=== PATIENT | male | born 1935 | race Caucasian/White ===

== ENCOUNTER 2016-10-23 08:54 | Emergency (ER) | payer OTHER, MEDICAID ==
[~2016-10-23] VITALS: Ht 165.1 cm; Wt 76.0 kg
[2016-10-23 08:59] VITALS: Ht 165.1 cm; Wt 76.0 kg
--- NOTE | 2016-10-23 09:42 | ERD ---
ER Documentation Chief Complaint Date/Time DATE: 10/23/16 TIME: 09:39 Chief Complaint PRODUCTIVE COUGH WITH WHITISH COLORED SECRFETION X 2 WEEK HPI This is an 81-year-old male with past medical history for hypertension and hypercholesterolemia presents to the emergency department with cough 2 weeks. Patient states he has productive cough with white/clear sputum production. Patient states last week he took Robitussin twice daily and this seemed to improve his symptoms. Patient states in the past 2 days the cough has returned and patient is coughing up clear white sputum. No fevers or chills. Patient also reports mild chest pressure to mid sternal region. No heart palpitations or severe crushing chest pain. No difficulty breathing or shortness of breath. No swelling of extremities. No dyspnea on exertion. ROS All systems reviewed and are negative except as per history of present illness. Medications Home Meds Active Scripts Guaifenesin* (Robitussin*) 100 Mg/5 Ml Syrup, 200 MG PO Q4H Y for COUGH, #120 ML Prov:ELY GERMAIN NP 10/23/16 Acetaminophen* (Tylenol*) 325 Mg Tablet, 1 TAB PO Q6 Y for PAIN AND OR ELEVATED TEMP, #20 TAB Prov:ELY GERMAIN NP 10/23/16 Allergies Allergies: Coded Allergies: No Known Allergy (Unverified , 10/23/16) PMhx/Soc Medical and Surgical Hx: pt denies Medical Hx, pt denies Surgical Hx Hx Alcohol Use: No Hx Substance Use: No Hx Tobacco Use: No Smoking Status: Never smoker Physical Exam Vitals Vital Signs Date Time Temp Pulse Resp B/P Pulse Ox O2 Delivery O2 Flow Rate FiO2 10/23/16 12:23 98.7 71 18 148/68 97 Room Air 10/23/16 11:31 196/91 10/23/16 08:59 98.1 74 18 182/87 98 Physical Exam Const: No acute distress, alert Head: Atraumatic Eyes: Normal Conjunctiva ENT: Normal External Ears, Nose and Mouth. Neck: Full range of motion..~ No meningismus. Resp: Clear to auscultation bilaterally. No wheezing, rhonchi or crackles. No stridor or labored breathing. Patient is talking in complete sentences. Cardio: Regular rate and rhythm, no murmurs Abd: Soft, non tender, non distended. Normal bowel sounds Skin: No petechiae or rashes Back: No midline or flank tenderness Ext: No cyanosis, or edema Neur: Awake and alert Psych: Normal Mood and Affect Results 24 hrs Current Medications Medications (Trade) Dose Ordered Sig/Ama Route PRN Reason Start Time Stop Time Status Last Admin Dose Admin Nicardipine HCl (Cardene) 30 mg ONCE ONCE PO 10/23/16 12:00 10/23/16 12:01 DC 10/23/16 11:36 Procedures/MDM MDM: This is an 81-year-old male presenting to emergency department with cough and nasal congestion intermittently for the past 2 weeks. Patient took Robitussin at home with some improvement in symptoms. Patient states he is coughing up clear/white sputum. No signs or symptoms of respiratory distress. Patient is talking in complete sentences. Patient is afebrile while in the ED. Upon initial assessment, patient's blood pressure is 182/87 mm Hg with HR 74 bpm. Patient states he has history of hypertension and takes losartan every morning. Patient states he walked to the ER which was about a 2 mile walk. Upon reassessment, patient's blood pressure is 196/91 mm Hg. patient given Cardene 30 mg p.o. Upon reassessment, patient's blood pressure 148/68 with heart rate 71 bpm. Patient denies headache, visual changes, nausea, vomiting, abdominal pain or any other complaints. Patient states he feels well and would like to go home. Low suspicion for pneumonia, pleural effusion, pneumothorax, CVA, TIA, malignant hypertension or acute MA. Differential diagnosis includes but not limited to URI, influenza, otitis media, otitis externa, asthma exacerbation, croup, bronchitis, bronchiolitis and costochondritis. Patient is appropriate for outpatient management and will be given prescription for ibuprofen and Robitussin. Instructed patient to follow-up with primary care provider in the next 2-3 days for reassessment and additional management. Return to ED for any high fever, chest pain, difficulty breathing, shortness breath, wheezing, vomiting, diarrhea, abdominal pain or any new or worsening symptoms. Patient verbalizes understanding. All questions answered at discharge. Departure Diagnosis: Primary Impression: URI (upper respiratory infection) URI type: unspecified viral URI Qualified Code: J06.9 - Viral upper respiratory tract infection Additional Impression: Hypertension Hypertension type: unspecified secondary hypertension Qualified Code: I15.9 - Secondary hypertension Condition: Stable ELY GERMAIN NP Oct 23, 2016 09:42
--- NOTE | 2016-10-23 10:11 | RADRPT ---
PROCEDURE: XR Chest. CLINICAL INDICATION: chest pain, cough TECHNIQUE: Single frontal view of the chest was obtained COMPARISON: None FINDINGS: The heart and mediastinum are within normal limits. The lungs are clear. There is no pleural effusion or pneumothorax. RPTAT: AA IMPRESSION: No acute disease. .Jordon Dougherty MD, MD Date Time Electronically viewed and signed by .Jordon Dougherty MD, on 10/23/2016 10:11 .S/
[2016-10-23] MEDS ORDERED: ACET325T33 PO (10:16)
[2016-10-23] MEDS ORDERED: GUAI-637 PO (10:16)
[2016-10-23] MEDS ORDERED: NICARDipine HCL 30 MG CAPSULE PO ONE (12:00)
[2016-10-23 12:23] VITALS: BP 148/68; PULSE 71; RESP 18; TEMP 98.7
== END 2016-10-23 10:49 | disposition home or self-care (01) ==
LOC: FTE 08:54
DX: J06.9 Acute upper respiratory infection, unspecified (principal); I15.9 Secondary hypertension, unspecified; I10 Essential (primary) hypertension
CPT/HCPCS: 71010; 93005

== ENCOUNTER 2017-10-12 07:14 | Emergency (ER) | END 2017-10-12 08:02 | disposition home or self-care (01) ==